=== PATIENT | male | born 1945 | race Caucasian/White ===

== ENCOUNTER → 2017-03-24 | Outpatient (CLI) | payer OTHER, MEDICARE | LOC: FIMAGING 18:49 | PROVIDERS: ATTEND Physical Medicine & Rehabilitation | DX: M51.36 Other intervertebral disc degeneration, lumbar region (principal); M89.38 Hypertrophy of bone, other site; M48.061 Spinal stenosis, lumbar region without neurogenic claudication; M99.73 Connective tissue and disc stenosis of intervertebral foramina of lumbar region; M43.16 Spondylolisthesis, lumbar region; M51.26 Other intervertebral disc displacement, lumbar region ==

== ENCOUNTER → 2018-05-02 | Outpatient (CLI) | payer OTHER, MEDICARE | LOC: BHFA 09:00 | PROVIDERS: ATTEND Internal Medicine Cardiovascular Disease | DX: I25.10 Atherosclerotic heart disease of native coronary artery without angina pectoris (principal); I10 Essential (primary) hypertension | CPT/HCPCS: 78452; 93017; A9500 ==

== ENCOUNTER 2018-06-07 07:35 | Day surgery (SDC) | payer OTHER, MEDICARE ==
[2018-06-07] MEDS ORDERED: NS 1,000 ML IV ONE (07:39)
[2018-06-07] MEDS ORDERED: ASPIRIN EC 325 MG TAB PO ONE (07:39)
[2018-06-07] MEDS ORDERED: FAMOTIDINE 20 MG TAB PO ONE (07:39)
[2018-06-07] MEDS ORDERED: diphenhydrAMINE 25 MG CAP PO ONE (07:39)
[2018-06-07] MEDS ORDERED: DIAZEPAM 5 MG TAB PO ONE (07:39)
[2018-06-07 08:28] LABS: PLATELET COUNT 267 10^3/uL (150-400)
[2018-06-07 09:08] LABS: INR 1.01 (0.83-1.16); PROTIME(PATIENT) 12.9 SEC (12.0-15.0)
[2018-06-07] MEDS ORDERED: fentaNYL 100 MCG/2 ML INJ ONE (09:10)
[2018-06-07] MEDS ORDERED: LIDOCAINE 1% 300 MG/30 ML SDV ONE (09:10)
[2018-06-07] MEDS ORDERED: HEPARIN 10,000 UNIT/10 ML MDV (1,000 UNIT/ML) ONE (09:11)
[2018-06-07] MEDS ORDERED: VERAPAMIL 5 MG/2 ML VIAL ONE (09:11)
[2018-06-07] MEDS ORDERED: MIDAZOLAM 2 MG/2 ML VIAL ONE (09:11)
[2018-06-07] MEDS ORDERED: IOPAMIDOL (ISOVUE-370) 150 ML BTL IV ONE (09:11)
--- NOTE | 2018-06-07 09:32 | PDPROPOC ---
Sedation Plan of Care Sedation Plan of Care: vital signs stable, mental status noted, patient educated of risks, benefits, alternatives, patient can tolerate sedation ASA Classification: ASA 2 Planned drugs: fentanyl, midazolam Mallampati Score: Class 2 Mallampati Reference Image: Patient passed 3-3-2 rule?: Yes
--- NOTE | 2018-06-07 09:35 | PDGENHP ---
History & Physical Chief Complaint: abnormal nuclear stress test History of Present Illness: patient with CAD on the basis of a poative calcium score and abnormal nuclear stess with a 5% lesion in the laterall wall and abnormal ECG with stress. Please see full note from 05/04/2018. Pertinent Past, Social, Family History: see note 05/04/2018 Relevant Physical Exam: heart is regular rate and rhythm, lungs are clear on auscultation, the patient is awake and cooperative. Cardiorespiratory Assessment: see above.
--- NOTE | 2018-06-07 10:07 | PDDXCAT ---
Diagnostic Cath Note - . Date: 06/07/18 Inspector Multifocal Lens: Opal Indication: Class I/II angina, intolerance to med therapy or failure to respond , other (abnormal stress test, abnormal stress ECG) - Procedure Access: right wrist Procedure: left heart catheterization, coronary angiography, left ventriculogram - Materials Left Heart Cath size: 5F Left Heart Cath materials: JL3.5, JR4.0, pigtail - Findings-Left Heart Catheterization LM: The left main is 6mm in size. The vessel trifurcates into a LAD, circumflex and ramus. There is a 40% stenosis prior to the trifurcation point. LAD: The LAD 3mm in size proximally. The vessel gives rise to a large principal diagonal branch. After the first and principal diagonal branch both vessels are relatively small. There is luminal irregularities consistent with atherosclerosis. Maximal luminal stenosis is 40% distal to the first major septal branch.There is MARY III flow. LCX: The left circumflex is 2.25mm in size. The vessel gives rise to an obtuse marginal branch. RCA: The right coronary artery is 4mm in size an dominant. The vessel give rise to a PDA branch. There are luuminal irregularies consistent with atherosclerosis. There is a 40% lesion proximal to the acute marginal branch. There is MARY III flow throughout. Ramus: The Ramus Intermedius is 2.5mm in size. EDP: 16mmHg LVEF: 65% Wall motion: On the LV gram there is normal LV systolic function. The EF is 65% . There are no resting segmental wall motion abnormalities other than mild tardikinesis of the base of tjhe left ventricle. 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 There is no gradient on pullback across the aortic valve. There is no evidence of [place] dissection or aneurysm formation of the thoracic aorta. - Findings-Right Heart Catheterization AO: 135/72/102 Complications: NONE Estimated blood loss: <50ml Closure method: TR Band Assessment: The patient has non flow limiting coronary disease. The patient has a 40% lesion of the distal left main. The patient has a dominant right coronary system with a 40% lesion proximal to the acute margin of the heart. There are luminal irregularities consistent with atherosclerosis in the LAD. Maximal luminal stenosis is 40% distal to the septal branch takeoff. There is MARY III flow throughout. Plan: The patient has [place] vessel coronary disease and should be placed on a secondary prevention program to reduce the speed of progression of plaque formation. The patient should be on therapy to achieve a N-HDL less than 100mg/ dL and LDL less than 70mg/dL. This patient should be on chronic antiplatelet therapy with Aspirin 162mg daily. Consideration for a surveillance program with periodic nuclear stress or repeat CT coronary angiography to rule out progression of the left main plaque should be considered. Intervention: NONE
[2018-06-07] MEDS ORDERED: NITROGLYCERIN 0.4 MG BTL SL PRN (10:38)
[2018-06-07] MEDS ORDERED: HYDROCODONE/APAP 5/325 TAB PO PRN (10:38)
[2018-06-07] MEDS ORDERED: OXYCODONE/APAP 5/325 TAB PO PRN (10:38)
[2018-06-07] MEDS ORDERED: ATROPINE SULFATE 1 MG/10 ML SYR IVP PRN (10:38)
[2018-06-07] MEDS ORDERED: ONDANSETRON 4 MG/2 ML VIAL IVP PRN (10:38)
[2018-06-07] MEDS ORDERED: ZOLPIDEM TARTRATE 5 MG TAB PO SCH (21:00)
[2018-06-08] MEDS ORDERED: ASPIRIN 81 MG CHEWABLE TAB PO SCH (09:00)
[2018-06-08] MEDS ORDERED: OMEGA-3 FATTY ACIDS 1,000 MG CAP PO SCH (09:00)
[2018-06-08] MEDS ORDERED: LOSARTAN POTASSIUM 25 MG TAB PO SCH (09:00)
[2018-06-08] MEDS ORDERED: ROSUVASTATIN CALCIUM 20 MG TAB PO SCH (09:00)
--- NOTE | 2018-06-08 10:25 | CPEKG ---
Test Reason : OPEN Blood Pressure : / mmHG Vent. Rate : 061 BPM Atrial Rate : 061 BPM P-R Int : 201 ms QRS Dur : 090 ms QT Int : 402 ms P-R-T Axes : 070 019 042 degrees QTc Int : 405 ms Sinus rhythm Low voltage, extremity leads Confirmed by Ramesh Singh ([id number] on 06/08/2018 10:24:39 AM Referred By: Joseluis Joseph Confirmed By:Ramesh Singh
== END 2018-06-07 14:05 | disposition home or self-care (01) ==
LOC: FCATH 07:35
PROVIDERS: ATTEND Internal Medicine Cardiovascular Disease
PROC: B2151ZZ Fluoroscopy of Left Heart using Low Osmolar Contrast (ICD-10-PCS; principal; 2018-06-07)
PROC: B2111ZZ Fluoroscopy of Multiple Coronary Arteries using Low Osmolar Contrast (ICD-10-PCS; principal; 2018-06-07)
PROC: 4A023N8 Measurement of Cardiac Sampling and Pressure, Bilateral, Percutaneous Approach (ICD-10-PCS; principal; 2018-06-07)
DX: R94.39 Abnormal result of other cardiovascular function study (principal); I25.119 Atherosclerotic heart disease of native coronary artery with unspecified angina pectoris; I10 Essential (primary) hypertension; E78.5 Hyperlipidemia, unspecified
CPT/HCPCS: 93005; 93458; C1769; J1644; J2250; J3010; Q9967